=== PATIENT | male | born 1945 | race Caucasian/White ===

== ENCOUNTER 2020-05-06 10:42 | Emergency (ER) | payer OTHER ==
[~2020-05-06] VITALS: Ht 170.2 cm; Wt 63.5 kg
[2020-05-06] MEDS ORDERED: ALBUTEROL SULF 2.5 MG/0.5ML(0.5%) NEB SOLN HHN ONE (11:00)
[2020-05-06] MEDS ORDERED: methylPREDNISolone SOD SUCC 125 MG/2 ML VL IV ONE (11:00)
[2020-05-06] MEDS ORDERED: IPRATROPIUM BROM 0.5 MG/2.5ML INH SOL HHN ONE (11:00)
[2020-05-06 12:52] LABS: Albumin 4.1 g/dL (3.4-5.0); Anion Gap 4 (5-15); Blood Urea Nitrogen 9 mg/dL (7-18); Carbon Dioxide 34 mmol/L (21-32); Chloride 91 mmol/L (98-107); Glucose 123 mg/dL (74-106); Potassium 3.5 mmol/L (3.5-5.1); Sodium 129 mmol/L (136-145)
[2020-05-06 13:01] LABS: Alanine Aminotransferase 31 U/L (16-61); Alkaline Phosphatase 76 U/L (45-117); Aspartate Aminotransferase 21 U/L (15-37); BUN/Creatinine Ratio 12.7; Bilirubin, Total 0.6 mg/dL (0.2-1.0); GFR African American 139 mL/min; GFR Non-African American 115 mL/min; Total Protein 7.7 g/dL (6.4-8.2)
[2020-05-06 13:46] LABS: Basophils # (auto) 0 10 ^3/uL (0-0.2); Basophils % (auto) 0.4 % (0.0-2.0); Eosinophils # (auto) 0 10 ^3/uL (0-0.8); Eosinophils % (auto) 0.4 % (0.0-7.0); Hematocrit 42.9 % (41.0-53.0); Hemoglobin 14.8 g/dL (13.5-17.5); Lymphocytes # (auto) 0.7 10 ^3/uL (0.4-5.4); Lymphocytes % (auto) 9.1 % (10.0-50.0); Mean Corpuscular Hgb Conc. 34.4 g/dL (32.0-36.0); Mean Corpuscular Volume 87.2 fL (80.0-100.0); Monocytes # (auto) 0.5 10 ^3/uL (0-1.3); Monocytes % (auto) 6.3 % (0.0-12.0); Neutrophils # (auto) 6.8 10 ^3/uL (1.6-8.6); Neutrophils % (auto) 83.8 % (37.0-80.0); Platelet Count (auto) 248 10^3/uL (140-450); Red Blood Cells 4.92 10^6/uL (4.5-5.90); Red Cell Distribution Width 12.8 % (11.8-14.3); White Blood Cell 8.1 10^3/uL (4.4-10.8)
[2020-05-06] MEDS ORDERED: AZITHROMYCIN 500MG/ 250ML 250 ML IV ONE (14:30)
[2020-05-06] MEDS: IPRATROPIUM BROM 0.5 MG/2.5ML INH SOL NEB SCH ×2 (14:45→18:20)
[2020-05-06] MEDS: ALBUTEROL SULF 2.5 MG/0.5ML(0.5%) NEB SOLN NEB SCH ×2 (14:45→18:20)
[2020-05-06] MEDS ORDERED: ALB5IS NEB (14:47)
[2020-05-06] MEDS ORDERED: IPR002IS NEB (14:47)
[2020-05-06] MEDS ORDERED: PRED20TA2 PO (14:47)
[2020-05-06] MEDS ORDERED: AZIT250T8 PO (14:47)
[2020-05-06] MEDS ORDERED: GUAI-41 PO (14:47)
[2020-05-06 16:07] LABS: Urine Bacteria NONE SEEN /hpf (None Seen); Urine Blood Negative /uL (Negative); Urine Specific Gravity 1.006 (1.001-1.035); Urine WBC <1 /hpf (0 - 3)
[2020-05-06 18:32] VITALS: BP 169/92
[2020-05-06] MEDS ORDERED: BUDESONIDE (INHALATION) 0.5 MG/2 ML NEB NEB SCH (22:00)
[2020-05-06] MEDS ORDERED: guaiFENesin 200 MG/10 ML UD PO SCH (22:00)
== END 2020-05-06 20:23 | disposition home or self-care (01) ==
LOC: EDBD 10:42 → ER 10:42
DX: J44.1 Chronic obstructive pulmonary disease with (acute) exacerbation (principal); I10 Essential (primary) hypertension; Z20.822 Contact with and (suspected) exposure to COVID-19
CPT/HCPCS: 36415; 71045; 80053; 81001; 82728; 84484; 85025; 85379; 86141; 87426; 93005; 96365; 96366; 96375; 99291; C9803; J0456; J2930; U0003